=== PATIENT | female | born 1955 | race American Indian/Alaskan Native ===

== ENCOUNTER 2017-06-22 06:29 | Day surgery (SDC) | payer OTHER ==
[2017-06-22] MEDS ORDERED: NACL 0.9% 500 ML 500 ML IV SCH (07:00)
[2017-06-22 07:34] LABS: Eosinophils % (Auto) 2.1 % (0.0-4.3); Hematocrit 39.2 % (30.3-42.9); Hemoglobin 12.9 gm/dl (10.1-14.3); Mean Corpuscular HGB Conc 33 % (30-34); Mean Corpuscular Hemoglobin 26 pg (28-32); Mean Corpuscular Volume 80 fl (79-97); Platelet Count 231 K/mm3 (140-440); Red Blood Count 4.93 M/mm3 (3.65-5.03); Red Cell Distribution Width 15.2 % (13.2-15.2); White Blood Count 10.1 K/mm3 (4.5-11.0)
[2017-06-22 07:46] LABS: INR 0.96 (0.87-1.13)
[2017-06-22 07:52] LABS: Anion Gap 17 mmol/L; BUN/Creatinine Ratio 21.25; Blood Urea Nitrogen 17 mg/dL (7-17); Carbon Dioxide 26 mmol/L (22-30); Chloride 100.9 mmol/L (98-107); Glucose 116 mg/dL (65-100); Potassium 3.8 mmol/L (3.6-5.0); Sodium 140 mmol/L (137-145)
[2017-06-22] MEDS ORDERED: NITROGLYCERIN SYRINGE 3 ML ONE (08:37)
[2017-06-22] MEDS ORDERED: XYLOCAINE 2% INFILTRATI ONE (08:37)
[2017-06-22] MEDS ORDERED: HEPARIN 10,000 UNITS/10 ML ONE (08:37)
[2017-06-22] MEDS ORDERED: CALAN ONE (08:37)
[2017-06-22] MEDS ORDERED: HEPARIN/NS 5000 UNIT/500ML(CATH LAB) 1,000 ML IR ONE (08:37)
[2017-06-22] MEDS ORDERED: VERSED ONE (08:41)
[2017-06-22] MEDS ORDERED: SUBLIMAZE ONE (08:41)
--- NOTE | 2017-06-22 10:27 | Discharge Summary ---
Short Stay Discharge Plan Activity: advance as tolerated Weight Bearing Status: Full Weight Bearing Diet: low fat, low cholesterol, low salt, diabetic Wound: keep clean and dry Special Instructions: no heavy lifting (3 days), hold Metformin (48hrs) Follow up with: ROSALIO ROSSI DO [Primary Care Provider] - 7 Days CHIKA CERDA MD [Staff Physician] - 7 Days
[2017-06-22] MEDS ORDERED: NACL 0.9% 1000 ML 1,000 ML IV SCH (11:00)
[2017-06-22] MEDS ORDERED: NACL 0.9% 1000 ML 1,000 ML ONE (11:02)
[2017-06-22 13:52] VITALS: BP 116/68
--- NOTE | 2017-06-22 14:15 | Cardiac Catherization Report ---
CARDIAC CATHETERIZATION REASON FOR PROCEDURE: Abnormal exercise ECG test. PROCEDURE: The patient was prepped and draped in a sterile fashion after informed consent. The right radial cath site was prepped and draped after a negative Nico's test. The right radial artery was entered using Seldinger technique followed by placement of a 5-[place]izen [place] hydrophilic sheath. Routine radial cocktail was administered via the sheath. A #3.5 left Gerard catheter was used for left coronary angiography. A #4 right Gerard was used for right coronary angiography. A pigtail catheter was used for left ventricular angiography. The catheters were removed, sheath removed, and hemostasis achieved using manual compression. The patient was returned to the post procedure unit in stable condition. There were no complications. FINDINGS: HEMODYNAMICS: Left ventricular end-diastolic pressure was 14, following coronary angiography. The ascending aortic pressure was 111/76. There was no significant pressure gradient on pullback across the aortic valve. CORONARY ANGIOGRAPHY: There was dual LAD and circumflex ostia. The left anterior descending artery and its diagonal branches were angiographically normal. The circumflex artery and its obtuse marginal branches were angiographically normal. The right coronary artery was dominant and similarly angiographically normal. There was normal left ventricular systolic function, ejection fraction 65%. CONCLUSION: 1. Essentially, angiographically normal coronary arteries. 2. Normal left ventricular systolic function, ejection fraction 65%. RECOMMENDATION: Risk factor modification and medical therapy. JOB# [id number] BLAINE/NTS
== END 2017-06-22 13:30 | disposition home or self-care (01) ==
LOC: CATHLABREC 06:29
PROVIDERS: ATTEND Internal Medicine Cardiovascular Disease
DX: R94.31 Abnormal electrocardiogram [ECG] [EKG] (principal); I10 Essential (primary) hypertension; E11.9 Type 2 diabetes mellitus without complications; Z79.82 Long term (current) use of aspirin; Z79.899 Other long term (current) drug therapy; Z79.4 Long term (current) use of insulin; Z86.19 Personal history of other infectious and parasitic diseases; Z90.710 Acquired absence of both cervix and uterus; Z82.49 Family history of ischemic heart disease and other diseases of the circulatory system
CPT/HCPCS: 36415; 80048; 82962; 85025; 85610; 85730; 93005; 93010; 93458; C1894; J1644; J2250; J3010; J7030; J7040; Q9967